=== PATIENT | female | born 1935 | race Caucasian/White ===

== ENCOUNTER 2020-09-15 17:03 | Emergency (ER) | payer MEDICARE, BC, OTHER ==
[~2020-09-15] VITALS: Ht 152.4 cm; Wt 63.6 kg
[~2020-09-15 17:03] MED LIST: ALEVE 220MG220 MG PO; ASPI325T6 PO; ASPIRIN E.C. 8181 MG PO; B-12 100 MCG PO; B-1250 MCG PO; CIPRO 250MG TA250 MG PO; CIPRO 500MG TA500 MG PO; CRESTOR5 MG PO; DRISTAN 12-HOUR15 ML NS; FISH OIL SUPER1 SGL PO; FLEXERIL 1010 MG/TAB PO; FLONASE NASAL S16 GM NS; FOLIC ACID 11 MG/TA1 PO; GLUCOPHAGE500 MG/TAB PO; HEPARIN 50500 U/5 ML IV; HUMULIN 70/3100 U/M1 SQ; LEVAQUIN 5500 MG/TA1 PO; LIPITOR 40MG TA40 MG PO; MAGNESIUM200 MG PO; METAMUCIL3.4 GM/DOS PO; MICARDIS HCT 121 TAB PO; MICARDIS HCT 251 TAB PO; NEXIUM 40MG40 MG PO; NORCO 325 MG-7.1 TAB PO; NORVASC 5MG5 MG/TAB PO; NOVOLOG 100U100 U/M1 SC; NOVOLOG FLEX100 U/ML SQ; NOVOLOG MIX 70/10 ML SQ; NOVOLOG MIX 70/33 ML SC; NOVOLOG MIX 70/33 ML SQ; NS INT FLUSH 1010 ML IV; PLAVIX 75MG TAB75 MG PO; PRAVACHOL 40MG40 MG PO; PRIL40 PO; ROCEPHIN 2GM VIAL21 IV; ROXICODONE 55 MG/TAB PO; SENOKOT S 50 MG1 TAB PO; TOPROL XL 50MG50 MG PO; VITAMIN B-150 MG PO; VITAMIN D 1001000 IU PO; ZANTAC 150MG T150 MG PO; ZYRTEC 10MG10 MG PO; ZYRTEC-D 5 MG-11 TER PO
[2020-09-15 17:05] VITALS: TEMP 98.5
[2020-09-15 17:50] LABS: BASO # 0.1 (0.0-0.2); BASO % 0.5 % (0.0-2.0); EOS # 0.1 (0.0-0.7); EOS % 0.8 % (0-4.0); GRAN % 73.5 % (42.2-75.2); HEMATOCRIT 41.7 % (37.0-47.0); HEMOGLOBIN 13.4 g/dl (12.5-16.0); LYMPH # 1.5 (1.2-3.4); LYMPH % 15.9 % (20.0-51.0); MEAN CELL VOLUME 90 fl (80.0-100.0); MEAN CORPUSCULAR HEMOGLOBIN 29 pg (27.0-31.0); MEAN CORPUSCULAR HGB CONC 32 g/dl (33.0-37.0); MEAN PLATELET VOLUME 10.8 fl (7.4-10.4); MONO # 0.9 (0.1-0.6); PLATELET COUNT 259 K/mm3 (130-400); RED BLOOD COUNT 4.65 M/mm3 (4.10-5.30); REDCELL DISTRIBUTION WIDTH-CV 13.7 % (11.5-14.5)
[2020-09-15 17:52] LABS: INR 1.1 (0.8-3.0); PROTHROMBIN TIME 12.5 SECONDS (9.7-12.8)
[2020-09-15 17:55] LABS: BILIRUBIN,TOTAL 0.6 mg/dL (0.0-1.0); CALCIUM 9.2 mg/dL (8.4-10.2); CREATININE, serum 0.7 (0.52-1.25); POTASSIUM 4.6 mmol/L (3.4-5.0); TOTAL PROTEIN 7.5 gm/dL (6.4-8.2)
[2020-09-15 18:15] LABS: TROPONIN-I 0.019 ng/mL (0.000-0.035)
[2020-09-15 18:36] LABS: COLLECTION METHOD CLEAN CATCH
[2020-09-15 18:42] LABS: PH 6 (5-8); SQUAMOUS EPITHELIAL 0-2 /hpf; URINE APPEARANCE Clear; URINE BACTERIA None Seen /hpf; URINE BILIRUBIN Negative (NEGATIVE); URINE BLOOD Negative (NEGATIVE); URINE COLOR Straw; URINE GLUCOSE Negative (NEGATIVE); URINE KETONE Negative (NEGATIVE); URINE LEUKOCYTE ESTERASE Negative (NEGATIVE); URINE NITRATE Negative (NEGATIVE); URINE PROTEIN(semi-quant) 1+ (NEGATIVE); URINE RBC 0-2 /hpf; URINE UROBILINOGEN Negative (NEGATIVE)
[2020-09-16 00:40] VITALS: BP 180/60; PULSE 80
== END 2020-09-16 00:50 | disposition short-term general hospital (02) ==
LOC: COL.ER 17:03
PROVIDERS: Emergency Medicine
DX: I11.0 Hypertensive heart disease with heart failure (principal); I50.9 Heart failure, unspecified; I25.10 Atherosclerotic heart disease of native coronary artery without angina pectoris; E11.9 Type 2 diabetes mellitus without complications; Z72.3 Lack of physical exercise; Z98.61 Coronary angioplasty status; Z79.4 Long term (current) use of insulin; W01.198A Fall on same level from slipping, tripping and stumbling with subsequent striking against other object, initial encounter
CPT/HCPCS: J0360; Q9967

== ENCOUNTER → 2020-10-11 | Outpatient (REF) ==
[2020-10-11 18:02] LABS: COLLECTION METHOD CATHETER
[2020-10-11 18:14] LABS: MUCOUS Present /lpf; PH 6 (5-8); SQUAMOUS EPITHELIAL 0-2 /hpf; URINE APPEARANCE Clear; URINE BACTERIA None Seen /hpf; URINE BILIRUBIN Negative (NEGATIVE); URINE BLOOD Negative (NEGATIVE); URINE COLOR Yellow; URINE GLUCOSE Negative (NEGATIVE); URINE KETONE Negative (NEGATIVE); URINE LEUKOCYTE ESTERASE Trace (NEGATIVE); URINE NITRATE Negative (NEGATIVE); URINE PROTEIN(semi-quant) Negative (NEGATIVE); URINE RBC 0-2 /hpf; URINE UROBILINOGEN Negative (NEGATIVE)
== END ==
LOC: ZCOL.LAB 18:00
PROVIDERS: Internal Medicine
DX: Z01.89 Encounter for other specified special examinations (principal)

== ENCOUNTER → 2020-11-17 | Outpatient (CLI) | payer MEDICARE, BC, OTHER ==
[2020-11-17 18:47] LABS: COLLECTION METHOD CLEAN CATCH
[2020-11-17 19:02] LABS: MUCOUS Present /lpf; PH 6 (5-8); SQUAMOUS EPITHELIAL 0-2 /hpf; URINE APPEARANCE Clear; URINE BACTERIA None Seen /hpf; URINE BILIRUBIN Negative (NEGATIVE); URINE BLOOD Negative (NEGATIVE); URINE COLOR Yellow; URINE GLUCOSE Negative (NEGATIVE); URINE KETONE Negative (NEGATIVE); URINE LEUKOCYTE ESTERASE Negative (NEGATIVE); URINE NITRATE Negative (NEGATIVE); URINE PROTEIN(semi-quant) Negative (NEGATIVE); URINE RBC None Seen /hpf; URINE UROBILINOGEN Negative (NEGATIVE); URINE WBC 0-2 /hpf
== END ==
LOC: ZCOL.LAB 16:21
PROVIDERS: Internal Medicine
DX: N39.0 Urinary tract infection, site not specified (principal)

== ENCOUNTER → 2020-12-19 | Outpatient (CLI) | payer MEDICARE, BC, OTHER ==
[2020-12-19 15:47] LABS: COLLECTION METHOD CLEAN CATCH
[2020-12-19 16:30] LABS: MUCOUS Present /lpf; PH 5 (5-8); SQUAMOUS EPITHELIAL 0-2 /hpf; URINE APPEARANCE Hazy; URINE BACTERIA None Seen /hpf; URINE BILIRUBIN Negative (NEGATIVE); URINE BLOOD Negative (NEGATIVE); URINE COLOR Yellow; URINE GLUCOSE Negative (NEGATIVE); URINE KETONE Negative (NEGATIVE); URINE LEUKOCYTE ESTERASE Trace (NEGATIVE); URINE NITRATE Negative (NEGATIVE); URINE PROTEIN(semi-quant) Negative (NEGATIVE); URINE RBC 0-2 /hpf; URINE UROBILINOGEN Negative (NEGATIVE)
== END ==
LOC: ZCOL.LAB 15:30
PROVIDERS: Family Medicine
DX: R30.0 Dysuria (principal)